=== PATIENT | female | born 1990 | race Caucasian/White ===

== ENCOUNTER 2016-08-07 12:38 | Emergency (ER) | payer SELFPAY ==
[~2016-08-07] VITALS: Ht 154.9 cm; Wt 61.2 kg
[2016-08-07 12:41] VITALS: BP 138/78
[2016-08-07 14:57] LABS: KETONES,URINE NEGATIVE (NEGATIVE); LEUKOCYTE ESTERASE ,URINE NEGATIVE (NEGATIVE)
[2016-08-07 15:17] LABS: PREGNANCY TEST URINE QUAL NEGATIVE (NEGATIVE)
[2016-08-07 15:19] LABS: ADD UA MICROSCOPIC YES
[2016-08-07 15:32] LABS: ADD URINE CULTURE YES; WBC,URINE 0-2 /HPF (0-3)
== END 2016-08-07 14:43 | disposition left against medical advice (07) ==
LOC: ER 12:40 → EDSEX 12:40 → ER 14:43
DX: N89.8 Other specified noninflammatory disorders of vagina (principal)
CPT/HCPCS: 81001; 84703; 87086; 99284; A4606; Z7610; 81000-TC